=== PATIENT | female | born 1970 | race Caucasian/White ===

== ENCOUNTER 2016-09-06 11:23 | Day surgery (SDC) | payer BC ==
[2016-08-29 13:02] LABS: BASOPHILS 0.3 %; BASOPHILS ABSOLUTE 0.02 10/3/uL (0.0-0.16); EOSINOPHILS ABSOLUTE 0.06 10/3/uL (0.0-0.53); HEMATOCRIT 41.9 % (36.0-48.0); HEMOGLOBIN 13.9 g/dL (12.0-16.0); IMMATURE GRANULOCYTES 0.2 %; IMMATURE GRANULOCYTES ABSOLUTE 0.01 10/3/uL (0.0-0.11); LYMPHOCYTES ABSOLUTE 1.67 10/3/uL (0.67-4.30); MEAN CORPUS HGB CONC 33.2 g/dL (32.0-36.0); MEAN CORPUSCULAR HEMOGLOB 30.6 pg (26.0-34.0); MEAN CORPUSCULAR VOLUME 92.3 fL (80-100); MEAN PLATELET VOLUME 11.4 fL (9.2-13.0); MONOCYTES ABSOLUTE 0.29 10/3/uL (0.21-1.20); NEUTROPHILS 64.5 %; NEUTROPHILS ABSOLUTE 3.71 10/3/uL (2.02-8.40); PLATELET COUNT 184 10/3/uL (150-400); RBC DISTRIBUTION WIDTH 13.2 % (12.0-16.0); RED CELL COUNT 4.54 10/6/uL (4.0-5.6); WHITE BLOOD CELLS 5.8 10/3/uL (4.5-10.5)
[2016-08-29 13:05] LABS: MANUAL DIFF NO %
[2016-08-29 14:26] LABS: ASCORBIC ACID (UR NOT ORDER) NEG (NEG); BILIRUBIN, URINE NEGATIVE (NEG); KETONE, URINE NEGATIVE (NEG); LEUKOCYTE ESTERASE(NOT OR NEG (NEG); WBC (NOT ORDERED) (RFLEX) < 1 (0-5)
--- NOTE | ~2016-09-06 | OP ---
[facility] Of [id number] [place]. [address] NAME: HOMERO JORGE JAIRO : 70 STATUS : [facility]#: [id number] AGE: 46 ADM/REG DATE : 09/06/16 MR#: [id number] REPORT SERV DATE: 09/06/16 DICTATED BY: CHARLA PALACIOS JR. DATE: 09/06/16 REPORT STATUS : Draft TRANSCRIBED BY: CRISTOFER DATE: 09/06/16 DATE OF PROCEDURE: PREOPERATIVE DIAGNOSIS: Chronic pelvic pain. POSTOPERATIVE DIAGNOSIS: Chronic pelvic pain. PROCEDURE: Diagnostic laparoscopy with lysis of adhesions. ANESTHESIA: General anesthesia. COMPLICATIONS: None. ESTIMATED BLOOD LOSS: 25 mL. URINE OUTPUT: Not measured. REACTOR TECHNICIAN: Juvenal Cassidy. DRAINS: None. PACKS: None. SPECIMENS: None. FINDINGS: Laparoscopy revealed previous total hysterectomy with no ovaries, no evidence of endometriosis. There were several filmy adhesions in the left adnexal remnant area tethering the descending and sigmoid colon. These were lysed with cold Endo Adelia with good results. Liver edge and appendix appeared normal. PROCEDURE IN FULL: After obtaining informed consent, the patient was taken to the operating room, where general anesthesia was induced difficulty. Abdomen, genitalia, and perineum were prepped and draped in usual sterile fashion. A 1 cm incision was made in the umbilicus and a Veress insufflating needle was inserted and carboperitoneum was created with 3 L of CO2 gas. A 10/12 trocar sleeve introduced through the same incision without difficulty and findings were noted as above. Cold Endo adelia were introduced into the areas of the adhesions along the colon and taken down with blunt and sharp dissection with good results. All instruments were removed. Carboperitoneum was allowed to escape. The 10/12 sleeve was removed. Skin incision was closed with 3-0 Monocryl. Injected Marcaine for anesthesia and patient revived, transferred to the recovery room. Vital signs were stable. There were no complications. ALDAIR/CRISTOFER Record Of [place] [address] [facility] [place] [address] NAME: ANIAHOMERO GILL : 70 STATUS : [facility] PAT#: [id number] AGE: 46 ADM/REG DATE : 09/06/16 MR#: [id number] REPORT SERV DATE: 09/06/16 DICTATED BY: CHARLA PALACIOS JR. DATE: 09/06/16 REPORT STATUS : Draft TRANSCRIBED BY: CRISTOFER DATE: 09/06/16 Charla Palacios Jr., M.D. / [id number] CC: Marietta Feng Jr., M.D.
[~2016-09-06 11:23] MED LIST: COR20 PO; MTX2.5 PO; WELLSR150 PO
== END 2016-09-06 18:02 | disposition home or self-care (01) ==
LOC: SDC 11:23
PROVIDERS: Obstetrics & Gynecology
PROC: 3E0M05Z Introduction of Adhesion Barrier into Peritoneal Cavity, Open Approach (ICD-10-PCS; principal; 2016-09-06 12:45)
DX: N73.6 Female pelvic peritoneal adhesions (postinfective) (principal); Z90.710 Acquired absence of both cervix and uterus; F32.9 Major depressive disorder, single episode, unspecified; M06.9 Rheumatoid arthritis, unspecified; Z90.49 Acquired absence of other specified parts of digestive tract
CPT/HCPCS: 81001; 85025; A9270-GY; J0694; J1885; J2250; J2405; J2550; J2710; J3010